=== PATIENT | female | born 1995 | race Caucasian/White ===

== ENCOUNTER 2019-06-15 15:49 | Emergency (ER) | payer MEDICAID ==
[~2019-06-15] VITALS: Ht 161.9 cm; Wt 57.6 kg
[2019-06-15 15:55] VITALS: BP 108/64
--- NOTE | 2019-06-15 16:01 | NUR ---
PT AMBULATED TO ER BED 04
--- NOTE | 2019-06-15 16:08 | NUR ---
CEDRICK SAMUEL EVALUATING PT.
--- NOTE | 2019-06-15 16:15 | NUR ---
PAIN ALTERNATES BETWEEN LEFT AND RIGHT SIDES. CURRENTLY PAIN AT RT LOW BACK RADIATING DOWN LEG. DENIES INJURY. DENIES VAGINAL BLEEDING. DENIES UTI SYMPTOMS, FEVER. STATES NAUSEA IN THE MORNINGS ONLY, NO VOMITING. PT STATES 17 WEEKS , LMP 02/20/19 . PT AWAKE , ALERT, AFIBRILE , SCE , CBS BLF , FLAT SOFT NABS ABDOMEN. HX- DENIES
--- NOTE | 2019-06-15 16:18 | NUR ---
FHT DONE BY LEXI SALOMON 152 LOWER ABDOMEN.
--- NOTE | 2019-06-15 16:24 | NUR ---
Patient discharged with v/s stable. Written and verbal after care instructions given and explained regarding lumbosacral reticulopathy. Patient alert, oriented and verbalized understanding of instructions. Ambulatory with steady gait. All questions addressed prior to discharge. ID band removed. Patient advised to follow up with PMD. Rx of acetaminophen given. Patient educated on indication of medication including possible reaction and side effects. Opportunity to ask questions provided and answered. Excuse from work give.
[2019-06-15 16:25] VITALS: BP 108/64
[2019-06-15] MEDS ORDERED: ETOMIDATE 20 MG/10 ML VIAL IVP ONE (23:03)
== END 2019-06-15 16:24 | disposition home or self-care (01) ==
LOC: MED 15:49
DX: O9A.212 Injury, poisoning and certain other consequences of external causes complicating pregnancy, second trimester (principal); S39.012A Strain of muscle, fascia and tendon of lower back, initial encounter; Z3A.17 17 weeks gestation of pregnancy; X58.XXXA Exposure to other specified factors, initial encounter; Y93.89 Activity, other specified; Y92.89 Other specified places as the place of occurrence of the external cause; Y99.8 Other external cause status
CPT/HCPCS: 81002; 81025; 99282; J3490